=== PATIENT | male | born 1980 | race Hispanic/Latino ===

== ENCOUNTER 2020-03-31 05:43 | Emergency (ER) | payer OTHER ==
[2020-03-31] MEDS ORDERED: NA CHLORIDE 0.9% 1,000 ML ONE (06:11)
[2020-03-31 06:32] LABS: Absolute Lymphocytes (CBC) 1.3 K/uL (0.7-4.9); Basophils % 1.2 % (0-1.3); Hematocrit 44.7 % (39.6-49.0); Lymphocytes % 17.3 % (15.3-44.8); MPV 8.3 fL (7.6-11.3); RBC Red Blood Cell Count 5.13 M/uL (4.33-5.43)
[2020-03-31 06:54] LABS: Barbiturates NEGATIVE (NEGATIVE); Benzodiazepines NEGATIVE (NEGATIVE); Cocaine NEGATIVE (NEGATIVE); METHAMPHETAM NEGATIVE (NEGATIVE); Methadone NEGATIVE (NEGATIVE); Opiates NEGATIVE (NEGATIVE); Phencyclidine NEGATIVE (NEGATIVE); THC Cannibis NEGATIVE (NEGATIVE)
[2020-03-31] MEDS ORDERED: FAMOTIDINE 20 MG/2 ML VIAL IV ONE (06:55)
[2020-03-31] MEDS ORDERED: ASPIRIN EC 81 MG TAB PO ONE (06:55)
[2020-03-31] MEDS ORDERED: CEFTRIAXONE/SWI 1gm 1 GM/10 ML SYR ONE (06:55)
[2020-03-31] MEDS ORDERED: NA CHLORIDE 0.9% 250 ML ONE (06:55)
[2020-03-31] MEDS ORDERED: dexAMETHasone 10 MG/ML VIAL ONE (06:55)
[2020-03-31 06:59] LABS: ALT/SGPT 29 U/L (12-78); AST/SGOT 20 U/L (15-37); Albumin 3.8 g/dL (3.4-5.0); Alkaline Phosphatase 125 U/L (45-117); BUN Blood Urea Nitrogen 14 mg/dL (7-18); Bicarbonate 25 mmol/L (21-32); Bilirubin Direct 0.1 mg/dL (0-0.2); Bilirubin Total 0.4 mg/dL (0.2-1.0); Glucose Level 120 mg/dL (74-106); Lipase 85 U/L (73-393); NT PRO-BNP 25 pg/mL (<125); Potassium 3.2 mmol/L (3.5-5.1); Protein, Total 7.5 g/dL (6.4-8.2); Sodium Level 141 mmol/L (136-145); Troponin (Emerg Dept Use Only) < 0.02 ng/mL (0.0-0.045)
[2020-03-31] MEDS ORDERED: CEFTRIAXONE 1000 MG/VIAL ONE (07:00)
[2020-03-31] MEDS ORDERED: AZITHROMYCIN 500 MG INJ IVPB ONE (07:01)
[2020-03-31] MEDS ORDERED: POTASSIUM 25 MEQ EFFERV TAB ONE (07:30)
--- NOTE | 2020-03-31 07:56 | RAD REPORT ---
EXAM DESCRIPTION: CT - Chest For Pe Angio - 03/31/2020 7:29 am CLINICAL HISTORY: Chest pain;Dyspnea COMPARISON: Chest Single View dated 03/31/2020 TECHNIQUE: Dynamically enhanced 3 mm thick images of the chest were obtained during administration o f approximately 150mL Isovue 370 IV contrast. Coronal and oblique MIP reconstruction images were gene rated and reviewed. Exam utilizes a protocol to evaluate the pulmonary arterial tree. All CT scans are performed using dose optimization technique as appropriate and may include automated exposure control or mA/KV adjustment according to patient size. FINDINGS: No pulmonary emboli are identified. The aorta as imaged shows no acute or suspicious finding. No pericardial thickening or effusion. Hear t size is upper normal. No focal mass or consolidation. Dependent atelectasis seen in each lower lobe. Interstitial markings are prominent. This could be interstitial edema or infiltrate on this baseline assessment. A 7 mm non calcified pulmonary nodule is present near the minor fissure. No other nodules seen. Follow-up recomm endation would be CT imaging in 6-12 months. No pleural effusion or pleural thickening. No mediastinal or hilar suspicious masses. No chest wall masses or abnormal axillary lymphadenopathy. IMPRESSION: No pulmonary emboli identified. Right lower lung field 7 mm pulmonary nodule warranting re-evaluation CT imaging in 6-12 months. This baseline assessment shows upper normal heart size and prominent interstitial markings. Edema or infiltrate are both possible. No focal consolidation.
[2020-03-31 08:03] LABS: Urine Blood NEGATIVE (NEG); Urine Glucose NEGATIVE (NEG); Urine Protein NEGATIVE (NEG)
--- NOTE | 2020-03-31 08:20 | ER ---
Nurse's Notes [facility] Name: Issa Sidhu Age: 39 yrs Sex: Male : 1980 Arrival Date: 03/31/2020 Time: 05:44 Bed 6 Private MD: Diagnosis: Chest pain, unspecified;Dyspnea;Other viral pneumonia-covid -19;Hypokalemia Presentation: 03/31 05:46 Chief complaint: EMS states: pt was complaining of the burning in the chest, reports sg lives in a household where multiple people have had COVID 19, pt states having had a feeling of trying to breath underwater just prior to arrival, described as short of breath, pt denies n/v/d/ reports feeling chills with some body aches as well. Coronavirus screen: chills, fever, muscle pain, shaking with chills, shortness of breath, Client presents with at least one sign or symptom that may indicate coronavirus-19. Standard/surgical mask placed on the client. Provider contacted for isolation considerations. Ebola Screen: Patient negative for fever greater than or equal to 101.5 degrees Fahrenheit, and additional compatible Ebola Virus Disease symptoms Patient denies exposure to infectious person. Patient denies travel to an Ebola-affected area in the 21 days before illness onset. No symptoms or risks identified at this time. Initial Sepsis Screen: Does the patient meet any 2 criteria? No. Patient's initial sepsis screen is negative. Does the patient have a suspected source of infection? No. Patient's initial sepsis screen is negative. Risk Assessment: Do you want to hurt yourself or someone else? Patient reports no desire to harm self or others. Onset of symptoms was March 31, 2020. Care prior to arrival: None. Transition of care: patient was not received from another setting of care. 05:46 Method Of Arrival: EMS: [facility] 05:46 Acuity: CLIFF 3 sg Historical: - Allergies: 05:46 No Known Allergies; sg - Home Meds: 05:46 Clonazepam Oral [Active]; Klonopin Oral [Active]; sg - PMHx: 05:52 Anxiety; sg - PSHx: 05:46 Bilateral Inguinal Hernia Repair; Appendectomy; sg - Immunization history:: Adult Immunizations up to date. - Social history:: Smoking status: Patient denies any tobacco usage or history of. - Family history:: not pertinent. Screenin:56 Abuse screen: Denies threats or abuse. Denies injuries from another. Nutritional mg2 screening: No deficits noted. Tuberculosis screening: No symptoms or risk factors identified. Fall Risk IV access (20 points). Assessment: 06:56 General: Appears in no apparent distress. comfortable, Behavior is calm, cooperative. mg2 Pain: Complains of pain in chest Pain does not radiate. Pain currently is 6 out of 10 on a pain scale. Quality of pain is described as burning, aching. Neuro: Level of Consciousness is awake, alert, obeys commands, Oriented to person, place, time, situation. Cardiovascular: Capillary refill < 3 seconds Patient's skin is warm and dry. Respiratory: Airway is patent Respiratory effort is even, unlabored, Respiratory pattern is regular, symmetrical. Respiratory: Reports shortness of breath at rest. GI: No signs and/or symptoms were reported involving the gastrointestinal system. : No signs and/or symptoms were reported regarding the genitourinary system. EENT: No signs and/or symptoms were reported regarding the EENT system. Derm: Skin is intact, is healthy with good turgor, Skin is pink, warm \T\ dry. normal. Musculoskeletal: Circulation, motion, and sensation intact. Capillary refill < 3 seconds. 07:48 Reassessment: Patient appears in no apparent distress at this time. No changes from tw2 previously documented assessment. Patient and/or family updated on plan of care and expected duration. Pain level reassessed. Patient is alert, oriented x 3, equal unlabored respirations, skin warm/dry/pink. 08:38 Reassessment: Patient appears in no apparent distress at this time. No changes from tw2 previously documented assessment. Patient and/or family updated on plan of care and expected duration. Pain level reassessed. Patient is alert, oriented x 3, equal unlabored respirations, skin warm/dry/pink. 08:46 Reassessment: Patient appears in no apparent distress at this time. No changes from tw2 previously documented assessment. Patient and/or family updated on plan of care and expected duration. Pain level reassessed. Patient is alert, oriented x 3, equal unlabored respirations, skin warm/dry/pink. Vital Signs: 05:46 BP 141 / 89; Pulse 89; Resp 17 S; Temp 97.7; Pulse Ox 99% on R/A; sg 06:57 BP 132 / 85; Pulse 76; Resp 18; Temp 99.1; Pulse Ox 98% on R/A; mg2 07:48 BP 133 / 87; Pulse 81; Resp 17; Pulse Ox 95% on R/A; tw2 08:37 BP 109 / 72; Pulse 80; Resp 17; Pulse Ox 97% on R/A; tw2 ED Course: 05:44 Patient arrived in ED. sg 05:44 Oh Justice MD is Attending Physician. cj 05:47 Arm band placed on. sg 05:49 Triage completed. sg 05:58 Ab Edouard, RATNA is Primary Nurse. mg2 06:15 Inserted saline lock: 18 gauge in right antecubital area, using aseptic technique. mg2 Blood collected. 06:44 XRAY Chest (1 view) In Process Unspecified. EDMS 06:56 No provider procedures requiring assistance completed. mg2 06:56 covid sent to lab. mg2 06:57 Patient has correct armband on for positive identification. quality assurance monitor final on. Pulse mg2 ox on. NIBP on. 07:09 Report given to Elzbieta RN. mg2 07:29 CT Chest For PE Angio In Process Unspecified. EDMS 07:29 [facility] jr8 07:57 Primary Nurse role handed off by Ab Edouard, RATNA tw2 07:57 Haven Escoto, RN is Primary Nurse. tw2 08:19 Oracio Contreras MD is Referral Physician. jr8 08:46 IV discontinued, intact, bleeding controlled, No redness/swelling at site. Pressure tw2 dressing applied. Administered Medications: 06:20 Drug: NS 0.9% 1000 ml Route: IV; Rate: 1 bolus; Site: right antecubital; mg2 06:54 Drug: Rocephin 1 grams Route: IV; Rate: per protocol; Site: right antecubital; mg2 06:54 Drug: Aspirin 162 mg Route: PO; mg2 07:47 Follow up: Response: No adverse reaction tw2 06:54 Drug: Pepcid 20 mg Route: IVP; Site: right antecubital; mg2 07:47 Follow up: Response: No adverse reaction tw2 06:55 Drug: Decadron - Dexamethasone 10 mg Route: IVP; Site: right antecubital; mg2 07:47 Follow up: Response: No adverse reaction tw2 06:55 Drug: Zithromax 500 mg Route: IVPB; Infused Over: 1 hrs; Site: right antecubital; mg2 07:55 Follow up: Response: No adverse reaction; IV Status: Completed infusion tw2 07:50 Drug: Potassium Effervescent Tablet 50 mEq Route: PO; tw2 08:38 Follow up: Response: No adverse reaction tw2 Output: 07:57 Urine: 1100ml (Voided); Total: 1100ml. tw2 Outcome: 08:20 Discharge ordered by . jrSidney 08:45 Discharged to home ambulatory. tw2 08:45 Condition: stable 08:45 Discharge instructions given to patient, Instructed on discharge instructions, follow up and referral plans. medication usage, Demonstrated understanding of instructions, follow-up care, medications, Prescriptions given X 4. 08:46 Patient left the ED. tw2 Signatures: Dispatcher [employer] EDMS Asad Ceballos RN RN Oh Ortez MD MD cha Roszak, Josh, PA PA jr8 Haven Escoto RN RN tw2 Ab Edouard RN RN mg2
--- NOTE | 2020-03-31 08:20 | EDPHYS ---
Physician Documentation [facility] Name: Issa Sidhu Age: 39 yrs Sex: Male : 1980 Arrival Date: 03/31/2020 Time: 05:44 Bed 6 Private MD: ED Physician Oh Justice HPI: 03/31 05:48 This 39 yrs old Male presents to ER via Unassigned with complaints of Chest cj Burning, COVID 19 Exposure. 05:48 The patient has shortness of breath at rest, with light activity. Onset: The cj symptoms/episode began/occurred just prior to arrival. Duration: The symptoms are continuous, and are unchanged since they started. The patient's shortness of breath has no apparent modifying factors. The patient or guardian reports chest pain that is located primarily in the substernal area. Onset: just prior to arrival. The pain does not radiate. Associated signs and symptoms: Pertinent positives: chest pain, non-productive cough. Historical: - Allergies: 05:46 No Known Allergies; sg - Home Meds: 05:46 Clonazepam Oral [Active]; Klonopin Oral [Active]; sg - PMHx: 05:52 Anxiety; sg - PSHx: 05:46 Bilateral Inguinal Hernia Repair; Appendectomy; sg - Immunization history:: Adult Immunizations up to date. - Social history:: Smoking status: Patient denies any tobacco usage or history of. - Family history:: not pertinent. ROS: 05:48 Constitutional: Negative for fever, chills, and weight loss, Eyes: Negative for injury, cj pain, redness, and discharge, ENT: Negative for injury, pain, and discharge, Neck: Negative for injury, pain, and swelling, Respiratory: Negative for shortness of breath, cough, wheezing, and pleuritic chest pain, Abdomen/GI: Negative for abdominal pain, nausea, vomiting, diarrhea, and constipation, Back: Negative for injury and pain, : Negative for injury, bleeding, discharge, and swelling, MS/Extremity: Negative for injury and deformity, Skin: Negative for injury, rash, and discoloration, Neuro: Negative for headache, weakness, numbness, tingling, and seizure, Psych: Negative for depression, anxiety, suicide ideation, homicidal ideation, and hallucinations, Allergy/Immunology: Negative for hives, rash, and allergies, Endocrine: Negative for neck swelling, polydipsia, polyuria, polyphagia, and marked weight changes, Hematologic/Lymphatic: Negative for swollen nodes, abnormal bleeding, and unusual bruising. 05:48 Cardiovascular: Positive for chest pain. 05:48 Respiratory: Positive for shortness of breath, at rest. Exam: 05:50 Constitutional: This is a well developed, well nourished patient who is awake, alert, cj and in no acute distress. Head/Face: Normocephalic, atraumatic. Eyes: Pupils equal round and reactive to light, extra-ocular motions intact. Lids and lashes normal. Conjunctiva and sclera are non-icteric and not injected. Cornea within normal limits. Periorbital areas with no swelling, redness, or edema. ENT: Nares patent. No nasal discharge, no septal abnormalities noted. Tympanic membranes are normal and external auditory canals are clear. Oropharynx with no redness, swelling, or masses, exudates, or evidence of obstruction, uvula midline. Mucous membranes moist. Neck: Trachea midline, no thyromegaly or masses palpated, and no cervical lymphadenopathy. Supple, full range of motion without nuchal rigidity, or vertebral point tenderness. No Meningismus. Chest/axilla: Normal chest wall appearance and motion. Nontender with no deformity. No lesions are appreciated. Cardiovascular: Regular rate and rhythm with a normal S1 and S2. No gallops, murmurs, or rubs. Normal PMI, no JVD. No pulse deficits. Respiratory: Lungs have equal breath sounds bilaterally, clear to auscultation and percussion. No rales, rhonchi or wheezes noted. No increased work of breathing, no retractions or nasal flaring. Abdomen/GI: Soft, non-tender, with normal bowel sounds. No distension or tympany. No guarding or rebound. No evidence of tenderness throughout. Back: No spinal tenderness. No costovertebral tenderness. Full range of motion. Male : Normal genitalia with no discharge or lesions. Skin: Warm, dry with normal turgor. Normal color with no rashes, no lesions, and no evidence of cellulitis. MS/ Extremity: Pulses equal, no cyanosis. Neurovascular intact. Full, normal range of motion. Neuro: Awake and alert, GCS 15, oriented to person, place, time, and situation. Cranial nerves II-XII grossly intact. Motor strength 5/5 in all extremities. Sensory grossly intact. Cerebellar exam normal. Normal gait. Psych: Awake, alert, with orientation to person, place and time. Behavior, mood, and affect are within normal limits. 05:50 Musculoskeletal/extremity: DVT Exam: No signs of deep vein thrombosis. no pain, no swelling, no tenderness, negative Homans' sign noted on exam, no appreciated bluish discoloration, no erythema, no increased warmth. 06:30 ECG was reviewed by the Attending Physician. [facility] Vital Signs: 05:46 BP 141 / 89; Pulse 89; Resp 17 S; Temp 97.7; Pulse Ox 99% on R/A; sg 06:57 BP 132 / 85; Pulse 76; Resp 18; Temp 99.1; Pulse Ox 98% on R/A; mg2 07:48 BP 133 / 87; Pulse 81; Resp 17; Pulse Ox 95% on R/A; tw2 08:37 BP 109 / 72; Pulse 80; Resp 17; Pulse Ox 97% on R/A; tw2 MDM: 05:44 Patient medically screened. [facility] 05:50 Data reviewed: vital signs, nurses notes, lab test result(s), EKG, radiologic studies, [facility] CT scan, plain films. 05:51 Differential diagnosis: Anxiety Reaction asthma, Bronchitis CHF exacerbation, abnormal [facility] EKG, acute myocardial infarction, acute pericarditis, anxiety, coronary artery disease cholecystitis, Cholelithiasis hiatal hernia, pancreatitis, pneumonia, pneumothorax, pulmonary embolus, Myocardial Infarction pneumonia, Psychogenic pulmonary edema, Pulmonary Embolism reactive airway disease, Unstable Angina. Antibiotic administration: Not indicated. HEART Score: History: Slightly Suspicious (0), ECG: Normal (0), Age: < or = 45 years (0), Risk Factors: No Risk Factors Known (0), Troponin: < or = 1 x Normal Limit (0), Total Score = 0. The patient was given aspirin in the Emergency Department. The patient's Wells Deep Vein Thrombosis Score was calculated as follows: Total Score: 0. This patient was found to be at low risk for a deep vein thrombosis by using the Well's assessment criteria No Risks (0 Pts) Total Score: 0-2 Pts- Low Risk. The patient's pulmonary embolism risk score was calculated as follows: Total Score: Total Score: 0-2 points. This patient was found to be at low risk for a pulmonary embolism by using the Well's assessment criteria. LAURYN Risk Score: TOTAL SCORE = 0. Immunization status:. Data interpreted: monitoring analyst: rate is 78 beats/min, rhythm is regular, Pulse oximetry: on room air. Test interpretation: by ED physician or midlevel provider: ECG, plain radiologic studies. 08:19 Special discussion: I discussed with the patient the need to follow-up with the 8 PCP/specialist for the noted incidental finding on X-ray/CT scanning. 03/31 05:48 Order name: Basic Metabolic Panel; Complete Time: 07:13 [facility] 03/31 05:48 Order name: CBC with Diff; Complete Time: 06:36 [facility] 03/31 05:48 Order name: LFT's; Complete Time: 07:13 [facility] 03/31 05:48 Order name: Magnesium; Complete Time: 07:13 [facility] 03/31 05:48 Order name: NT PRO-BNP; Complete Time: 07:13 [facility] 03/31 05:48 Order name: Troponin (emerg Dept Use Only); Complete Time: 07:13 [facility] 03/31 05:48 Order name: XRAY Chest (1 view) cj 03/31 05:48 Order name: Lipase; Complete Time: 07:13 [facility] 03/31 05:48 Order name: CT Chest For PE Angio; Complete Time: 08:19 [facility] 03/31 05:48 Order name: COVID-19 cj 03/31 05:48 Order name: UDS; Complete Time: 07:13 [facility] 03/31 06:16 Order name: Blood Culture Adult (2) 03/31 06:39 Order name: Urine Dipstick--Ancillary (enter results); Complete Time: 08:19 2 03/31 05:48 Order name: EKG; Complete Time: 05:48 [facility] 03/31 05:48 Order name: Cardiac monitoring; Complete Time: 06:34 [facility] 03/31 05:48 Order name: EKG - Nurse/Tech; Complete Time: 06:34 [facility] 03/31 05:48 Order name: IV Saline Lock; Complete Time: 06:34 [facility] 03/31 05:48 Order name: Labs collected and sent; Complete Time: 06:34 [facility] 03/31 05:48 Order name: O2 Per Protocol; Complete Time: 06:34 [facility] 03/31 05:48 Order name: O2 Sat Monitoring; Complete Time: [facility] 03/31 05:48 Order name: Urine Dipstick-Ancillary (obtain specimen); Complete Time: [facility] EC:30 Rate is 77 beats/min. Rhythm is regular. QRS [place] is Normal. PA interval is normal. QRS cj interval is normal. QT interval is normal. No Q waves. T waves are Normal. No ST changes noted. Clinical impression: NSR w/ Non-specific ST/T Changes, 1st degree heart block, and No evidence of ischemia. Interpreted by me. Reviewed by me. Administered Medications: 06:20 Drug: NS 0.9% 1000 ml Route: IV; Rate: 1 bolus; Site: right antecubital; mg2 06:54 Drug: Rocephin 1 grams Route: IV; Rate: per protocol; Site: right antecubital; mg2 06:54 Drug: Aspirin 162 mg Route: PO; mg2 07:47 Follow up: Response: No adverse reaction tw2 06:54 Drug: Pepcid 20 mg Route: IVP; Site: right antecubital; mg2 07:47 Follow up: Response: No adverse reaction tw2 06:55 Drug: Decadron - Dexamethasone 10 mg Route: IVP; Site: right antecubital; mg2 07:47 Follow up: Response: No adverse reaction tw2 06:55 Drug: Zithromax 500 mg Route: IVPB; Infused Over: 1 hrs; Site: right antecubital; mg2 07:55 Follow up: Response: No adverse reaction; IV Status: Completed infusion tw2 07:50 Drug: Potassium Effervescent Tablet 50 mEq Route: PO; tw2 08:38 Follow up: Response: No adverse reaction tw2 Disposition: 03/31/20 08:20 Discharged to Home. Impression: Chest pain, unspecified, Dyspnea, Other viral pneumonia - covid -19, Hypokalemia. - Condition is Stable. - Discharge Instructions: Nonspecific Chest Pain, Potassium Content of Foods, Community-Acquired Pneumonia, Adult, Shortness of Breath, Shortness of Breath, [id number], Nonspecific Chest Pain, [id number], Aspirin and Your Heart, Hypokalemia, COVID-19. - Prescriptions for dexamethasone 2 mg Oral tablet - take 1 tablet by ORAL route 3 times per day; 15 tablet. Pepcid 20 mg Oral Tablet - take 1 tablet by ORAL route every 12 hours for 10 days; 20 tablet. Albuterol Sulfate 90 mcg/actuation - inhale 1-2 puff by INHALATION route every 4-6 hours; 1 Inhaler. Zithromax 500 mg Oral Tablet - take 1 tablet by ORAL route once daily for 4 days; 4 tablet. - Medication Reconciliation Form, Thank You Letter, Antibiotic Education, Prescription Opioid Use form. - Follow up: Private Physician; When: 2 - 3 days; Reason: Recheck today's complaints, Continuance of care, Re-evaluation by your physician. Follow up: Oracio Contreras; When: 2 - 3 days; Reason: Recheck today's complaints, Re-evaluation by your physician. - Problem is new. - Symptoms have improved. Addendum: 04/01/2020 11:13 Co-signature as Attending Physician, Oh Justice MD I agree with the assessment and c fragoso plan of care. Signatures: Dispatcher [employer] EDAsad Hopkins RN RN Oh Justice MD MD cha Roszak, Josh, PA PA jr8 Haven Escoto RN RN tw2 Ab Edouard RN RN mg2 Corrections: (The following items were deleted from the chart) 03/31 08:46 08:20 03/31/2020 08:20 Discharged to Home. Impression: Chest pain, unspecified; tw2 Dyspnea; Other viral pneumonia - covid -19; Hypokalemia. Condition is Stable. Discharge Instructions: Nonspecific Chest Pain, Community-Acquired Pneumonia, Adult, Shortness of Breath, Shortness of Breath, [id number], Nonspecific Chest Pain, [id number], Aspirin and Your Heart, COVID-19, Potassium Content of Foods, Hypokalemia. Prescriptions for dexamethasone 2 mg Oral tablet - take 1 tablet by ORAL route 3 times per day; 15 tablet, Pepcid 20 mg Oral Tablet - take 1 tablet by ORAL route every 12 hours for 10 days; 20 tablet, Albuterol Sulfate 90 mcg/actuation - inhale 1-2 puff by INHALATION route every 4-6 hours; 1 Inhaler, Zithromax 500 mg Oral Tablet - take 1 tablet by ORAL route once daily for 4 days; 4 tablet. and Forms are Medication Reconciliation Form, Thank You Letter, Antibiotic Education, Prescription Opioid Use. Follow up: Private Physician; When: 2 - 3 days; Reason: Recheck today's complaints, Continuance of care, Re-evaluation by your physician. Follow up: Oracio Contreras; When: 2 - 3 days; Reason: Recheck today's complaints, Re-evaluation by your physician. Problem is new. Symptoms have improved. jr8
--- NOTE | 2020-03-31 08:46 | RAD REPORT ---
EXAM DESCRIPTION: RAD - Chest Single View - 03/31/2020 6:44 am CLINICAL HISTORY: Dyspnea;Cough, history of COVID exposure COMPARISON: No prior imaging TECHNIQUE: AP portable chest image was obtained 03/31/2020 6:44 am . FINDINGS: Lung volumes are low accentuating heart, vasculature and lung markings. Mildly prominent v asculature and lung markings could mask early edema or infiltrate. No ground-glass opacification romi mikaela. Heart and vasculature are normal. No measurable pleural effusion and no pneumothorax. No acute b tabatha abnormality seen. No acute aortic findings suspected. IMPRESSION: Shallow inspiration exam potentially masking early interstitial edema or infiltrate. No specific findings to elevate suspicion for COVID-19 pneumonia.
[2020-03-31 08:53] VITALS: TEMP 99.1
[2020-03-31 08:55] VITALS: BP 109/72; O2SAT 97
== END 2020-03-31 08:46 | disposition home or self-care (01) ==
LOC: ER 05:43
DX: U07.1 COVID-19 (principal); J12.89 Other viral pneumonia; E87.6 Hypokalemia; R06.00 Dyspnea, unspecified; F41.9 Anxiety disorder, unspecified
CPT/HCPCS: 96365; 93005; 87040 ×2; 85025; 80048; 36415; 83735; 80076; 80307 ×8; 81003; 84484; 83690; 83880; 71275; 71045; 96375; 99285; U0002; Q9967; J0456; J1100; J0696; J7050; J7030

== ENCOUNTER 2020-04-07 02:12 | Emergency (ER) | payer OTHER ==
[2020-04-07 02:59] LABS: Absolute Lymphocytes (CBC) 3.3 K/uL (0.7-4.9); Basophils % 1.3 % (0-1.3); Hematocrit 44.6 % (39.6-49.0); Lymphocytes % 38.9 % (15.3-44.8); MPV 8.5 fL (7.6-11.3); RBC Red Blood Cell Count 5.02 M/uL (4.33-5.43)
[2020-04-07 03:09] LABS: BUN Blood Urea Nitrogen 16 mg/dL (7-18); Bicarbonate 22 mmol/L (21-32); Glucose Level 140 mg/dL (74-106); Potassium 3.3 mmol/L (3.5-5.1); Sodium Level 137 mmol/L (136-145); Troponin (Emerg Dept Use Only) < 0.02 ng/mL (0.0-0.045)
--- NOTE | 2020-04-07 04:11 | ER ---
Nurse's Notes [facility] Name: Issa Sidhu Age: 39 yrs Sex: Male : 1980 Arrival Date: 04/07/2020 Time: 02:16 Bed 5 Private MD: Diagnosis: Dyspnea, unspecified Presentation: 04/07 02:25 Chief complaint: Patient states: i was here last week and was diagnosed COVID POSITIVE. mg2 today i started to have Difficulty breathing, feeling tired, chest tightness and had panic attack since then. i took clonazepam [employer]. Coronavirus screen: Client denies travel out of the [place] in the last 14 days. Client reports previous positive COVID test result. last week - [facility] ED. Ebola Screen: No symptoms or risks identified at this time. Initial Sepsis Screen: Does the patient meet any 2 criteria? No. Patient's initial sepsis screen is negative. Does the patient have a suspected source of infection? No. Patient's initial sepsis screen is negative. Risk Assessment: Do you want to hurt yourself or someone else? Patient reports no desire to harm self or others. Onset of symptoms was April 06, 2020. 02:25 Method Of Arrival: Ambulatory mg2 02:25 Acuity: CLIFF 3 mg2 02:27 Coronavirus screen: Client presents with at least one sign or symptom that may indicate sg coronavirus-19. Client reports previous positive COVID test result. Date of collection: March 31, 2020. Triage Assessment: 02:41 General: Appears comfortable, Behavior is anxious. Respiratory: Onset: The mg2 symptoms/episode began/occurred suddenly, the patient has mild shortness of breath. Historical: - Allergies: 02:41 No Known Allergies; mg2 - Home Meds: 02:29 Clonazepam Oral [Active]; mg2 - PMHx: 02:29 Anxiety; mg2 - Immunization history:: Flu vaccine status is unknown. - Social history:: Smoking status: Patient denies any tobacco usage or history of. Patient/guardian denies using alcohol. - Family history:: not pertinent. - Hospitalizations: : No recent hospitalization is reported. Screenin:40 Abuse screen: Denies threats or abuse. Denies injuries from another. Nutritional mg2 screening: No deficits noted. Tuberculosis screening: No symptoms or risk factors identified. Fall Risk IV access (20 points). Assessment: 02:39 General: Appears in no apparent distress. comfortable, Behavior is cooperative, mg2 anxious. Pain: Complains of pain in chest Quality of pain is described as tight. Neuro: Level of Consciousness is awake, alert, obeys commands, Oriented to person, place, time, situation. Cardiovascular: Rhythm is sinus rhythm. Respiratory: Airway is patent Respiratory effort is even, unlabored, Respiratory pattern is regular, symmetrical. Respiratory: Reports shortness of breath at rest Breath sounds are clear. GI: No signs and/or symptoms were reported involving the gastrointestinal system. : No signs and/or symptoms were reported regarding the genitourinary system. EENT: No signs and/or symptoms were reported regarding the EENT system. Derm: Skin is intact, is healthy with good turgor, Skin is pink, warm \T\ dry. normal. Musculoskeletal: Circulation, motion, and sensation intact. Capillary refill < 3 seconds. 03:30 Reassessment: Patient appears in no apparent distress at this time. Patient and/or mg2 family updated on plan of care and expected duration. Pain level reassessed. Patient is alert, oriented x 3, equal unlabored respirations, skin warm/dry/pink. 04:19 Reassessment: Patient denies pain at this time. Patient states feeling better. Patient mg2 states symptoms have improved. Vital Signs: 02:25 BP 143 / 92; Pulse 86; Resp 18; Temp 98.2; Pulse Ox 99% on R/A; mg2 02:40 Weight 83.91 kg; Height 5 ft. 7 in. (170.18 cm); mg2 03:42 BP 126 / 82; Pulse 86; Resp 18; Pulse Ox 96% on R/A; mg2 04:19 BP 122 / 62; Pulse 78; Resp 18; Temp 98.1; Pulse Ox 98% on R/A; Pain 0/10; mg2 02:40 Body Mass Index 28.97 (83.91 kg, 170.18 cm) mg2 ED Course: 02:16 Patient arrived in ED. cl3 02:20 Ck Samaniego MD is Attending Physician. rn 02:25 Ab Edouard RN is Primary Nurse. mg2 02:28 Triage completed. mg2 02:28 Arm band placed on. mg2 02:35 EKG done, by ED staff, reviewed by Ck Samaniego MD. Inserted saline lock: 20 gauge in mg2 right antecubital area, using aseptic technique. Blood collected. 02:40 Patient has correct armband on for positive identification. teletypesetter monitor on. Pulse mg2 ox on. NIBP on. Door closed. Warm blanket given. 02:41 No provider procedures requiring assistance completed. mg2 02:48 XRAY Chest (1 view) In Process Unspecified. EDMS 03:38 CT Chest For PE Angio In Process Unspecified. EDMS 04:19 IV discontinued, intact, bleeding controlled, No redness/swelling at site. Pressure mg2 dressing applied. Administered Medications: No medications were administered Outcome: 04:10 Discharge ordered by . rn 04:19 Discharged to home ambulatory. mg2 04:19 Condition: stable 04:19 Discharge instructions given to patient, Instructed on discharge instructions, follow up and referral plans. Demonstrated understanding of instructions, follow-up care. 04:20 Patient left the ED. mg2 Signatures: Dispatcher [employer] EDAsad Hopkins RN RN Ck Samaniego MD MD rn Gardose, Michele, RN RN mg2 Lázaro Enciso cl3
--- NOTE | 2020-04-07 04:11 | EDPHYS ---
Physician Documentation [facility] Name: Issa Sidhu Age: 39 yrs Sex: Male : 1980 Arrival Date: 04/07/2020 Time: 02:16 Bed 5 Private MD: ED Physician Ck Samaniego HPI: 04/07 02:34 This 39 yrs old Male presents to ER via Ambulatory with complaints of rn Breathing Difficulty. 02:34 The patient has shortness of breath at rest, with light activity. rn 02:34 Onset: The symptoms/episode began/occurred just prior to arrival. Duration: The rn symptoms are continuous. The patient's shortness of breath is aggravated by exertion, is alleviated by nothing. Severity of symptoms: At their worst the symptoms were mild in the emergency department the symptoms are unchanged. The patient has not experienced similar symptoms in the past. The patient has been recently seen by a physician:. Reports sob, began this AM, reports COVID + last week, not really coughing, no fever, felt brief chest tightness, thought was having panic attack, took anxiety medication and did not help so came here. No hx of dvt/pe. . Historical: - Allergies: 02:41 No Known Allergies; mg2 - Home Meds: 02:29 Clonazepam Oral [Active]; mg2 - PMHx: 02:29 Anxiety; mg2 - Immunization history:: Flu vaccine status is unknown. - Social history:: Smoking status: Patient denies any tobacco usage or history of. Patient/guardian denies using alcohol. - Family history:: not pertinent. - Hospitalizations: : No recent hospitalization is reported. ROS: 02:34 Constitutional: Negative for fever, chills, and weight loss, Neck: Negative for injury, rn pain, and swelling, Cardiovascular: Negative for palpitations, and edema, Respiratory: Negative for cough, wheezing, and pleuritic chest pain, Abdomen/GI: Negative for abdominal pain, nausea, vomiting, diarrhea, and constipation, MS/Extremity: Negative for injury and deformity, Skin: Negative for injury, rash, and discoloration, Neuro: Negative for headache, weakness, numbness, tingling, and seizure. Exam: 02:34 Constitutional: This is a well developed, well nourished patient who is awake, alert, rn and in no acute distress, appears anxious Head/Face: Normocephalic, atraumatic. ENT: No stridor Cardiovascular: Regular rate and rhythm. No pulse deficits. Respiratory: Speaking full sentences, unlabored Skin: Dry MS/ Extremity: NO cyanosis Neuro: Awake and alert, GCS 15 02:40 ECG was reviewed by the Attending Physician. rn Vital Signs: 02:25 BP 143 / 92; Pulse 86; Resp 18; Temp 98.2; Pulse Ox 99% on R/A; mg2 02:40 Weight 83.91 kg; Height 5 ft. 7 in. (170.18 cm); mg2 03:42 BP 126 / 82; Pulse 86; Resp 18; Pulse Ox 96% on R/A; mg2 04:19 BP 122 / 62; Pulse 78; Resp 18; Temp 98.1; Pulse Ox 98% on R/A; Pain 0/10; mg2 02:40 Body Mass Index 28.97 (83.91 kg, 170.18 cm) mg2 MDM: 02:20 Patient medically screened. rn 04:06 Differential diagnosis: Anxiety Reaction Pneumothorax Pulmonary Embolism reactive rn airway disease, COVId-19, PE. Data reviewed: vital signs, nurses notes, lab test result(s), radiologic studies, CT scan, plain films, and as a result, I will discharge patient. Counseling: I had a detailed discussion with the patient and/or guardian regarding: the historical points, exam findings, and any diagnostic results supporting the discharge/admit diagnosis, lab results, radiology results, the need for outpatient follow up, to return to the emergency department if symptoms worsen or persist or if there are any questions or concerns that arise at home. Response to treatment: the patient's symptoms have mildly improved after treatment, Able to fall asleep, oxygen 98%, no acute findings on cxr or ct chest. Trop normal. ECG normal. Will dc home with return precautions. No obvious reason for new dyspnea other than lingering COVID vs component of anxiety. , and as a result, I will discharge patient. Special discussion: I discussed with the patient/guardian in detail that at this point there is no indication for admission to the hospital. It is understood, however, that if the symptoms persist or worsen the patient needs to return immediately for re-evaluation. 04/07 02:29 Order name: CBC with Diff; Complete Time: 03:36 rn 04/07 02:29 Order name: Basic Metabolic Panel; Complete Time: 03:36 rn 04/07 02:29 Order name: Procalcitonin; Complete Time: 04:10 rn 04/07 02:29 Order name: XRAY Chest (1 view) rn 04/07 02:29 Order name: Troponin (emerg Dept Use Only); Complete Time: 03:36 rn 04/07 03:21 Order name: CREATININE WHOLE BLOOD; Complete Time: 03:36 EDMS 04/07 02:29 Order name: IV Start; Complete Time: 02:39 rn 04/07 02:29 Order name: CT Chest For PE Angio rn 04/07 02:29 Order name: EKG; Complete Time: 02:30 rn 04/07 02:29 Order name: EKG - Nurse/Tech; Complete Time: 02:39 rn EC:40 Rate is 83 beats/min. Rhythm is regular. QRS Slick is Normal. ME interval is normal. QRS rn interval is normal. QT interval is normal. No Q waves. T waves are Normal. No ST changes noted. Clinical impression: Normal ECG. Interpreted by me. Reviewed by me. Administered Medications: No medications were administered Disposition: 04/07/20 04:10 Discharged to Home. Impression: Dyspnea, unspecified. - Condition is Stable. - Discharge Instructions: Shortness of Breath. - Medication Reconciliation Form, Thank You Letter, Antibiotic Education, Prescription Opioid Use form. - Follow up: Private Physician; When: As needed; Reason: Recheck today's complaints, Re-evaluation by your physician. - Problem is new. - Symptoms have improved. Signatures: Dispatcher [employer] EDCk Pickard MD MD rn Gardose, Michele, RN RN mg2 Corrections: (The following items were deleted from the chart) 04:20 04:10 04/07/2020 04:10 Discharged to Home. Impression: Dyspnea, unspecified. Condition mg2 is Stable. Forms are Medication Reconciliation Form, Thank You Letter, Antibiotic Education, Prescription Opioid Use. Follow up: Private Physician; When: As needed; Reason: Recheck today's complaints, Re-evaluation by your physician. Problem is new. Symptoms have improved. rn
[2020-04-07 05:29] VITALS: BP 122/62; TEMP 98.1; O2SAT 98
--- NOTE | 2020-04-07 07:16 | RAD REPORT ---
EXAM DESCRIPTION: RAD - Chest Single View - 04/07/2020 2:48 am CLINICAL HISTORY: COVID +, SOB COMPARISON: March 31 TECHNIQUE: AP portable chest image was obtained 04/07/2020 2:48 am . FINDINGS: Lung volumes are low. No new mass or consolidation. Lung markings are stable. Heart and va sculature are normal. No measurable pleural effusion and no pneumothorax. No acute bony abnormality s een. No acute aortic findings suspected. IMPRESSION: No acute cardiopulmonary process. No new or progressive finding from prior study.
--- NOTE | 2020-04-07 22:21 | RAD REPORT ---
EXAM DESCRIPTION: CT - Chest For Pe Angio - 04/07/2020 6:34 am CLINICAL HISTORY: DYSPNEA COMPARISON: None. TECHNIQUE: CT CHEST ANGIOGRAPHY WITH IV CONTRAST on 04/07/2020 2:29 AM CDT. MIPS reconstructions were generated. This exam was performed according to our departmental dose-optimization program, which includes autom ated exposure control, adjustment of the mA and/or kV according to patient size and/or use of iterati ve reconstruction technique. MIP images were generated. FINDINGS: Thoracic aorta is normal in course and caliber without aneurysm or dissection. Main pulmon alex artery is dilated to 3.3 cm. There are no definite acute or chronic filling defects. The heart is normal in size. There is no pericardial effusion. Intrathoracic lymph nodes are not enla rged. There is no pleural effusion, pleural thickening or pneumothorax. Central airways are patent. Lungs a re clear with no consolidation, mass or interstitial lung disease. There are no acute abnormalities within the limited images of the upper abdomen. There are no acute osseous findings. No suspicious bony lesions. IMPRESSION: No aortic dissection or aneurysm. No pulmonary embolus. Mildly dilated main pulmonary artery Electronically signed by: Adilson Jamil MD 04/07/2020 3:47 AM CDT Due to temporary technical issues with the PACS/Fluency reporting system, reports are being signed by the in house radiologist without review as a courtesy to ensure prompt reporting. The interpreting r adiologist is fully responsible for the content of the report.
== END 2020-04-07 04:20 | disposition home or self-care (01) ==
LOC: ER 02:12
DX: R06.00 Dyspnea, unspecified (principal); F41.9 Anxiety disorder, unspecified; Z86.19 Personal history of other infectious and parasitic diseases
CPT/HCPCS: 93005; 85025; 80048; 36415; 82565; 84484; 84145; 71275; 71045; 99284; Q9967